=== PATIENT | male | born 1965 | race Caucasian/White ===

== ENCOUNTER 2017-04-20 14:10 | Emergency (ER) | payer OTHER ==
[~2017-04-20] VITALS: Ht 175.3 cm; Wt 63.5 kg
[~2017-04-20 14:10] MED LIST: AMOXICILLIN 50500 M1 PO; ASPIR 8181 MG PO; ASPIRIN EC81 M1; ATIVAN0.5 MG PO; BACTRIM DS TAB1 EACH PO; FOLIC ACID1 MG; IBUPROFEN 800800 MG PO; KEFLEX500 MG PO; LACTULOSE10 GM/15 M PO; LEVAQUIN 500 M500 M2 PO; LEVAQUIN 750 M750 MG PO; LISINOPRIL5 MG PO; LOPRESSOR50 MG PO; NOHOMEMEDICATIONS; NORCO 5-325 TA1 EACH PO; POTASSIUM20 PO; PREDNISONE 5 MG5 M1 PO; TOPROL XL50 MG PO; TRAMADOL 50 MG50 MG PO; ULTRACET TABLE1 EACH PO; UNICOMPLEX M TA1 TA1 PO
[2017-04-20 14:42] LABS: ABSOLUTE BASOPHILS 0.1 thou/uL (0.0-0.2); ABSOLUTE EOSINOPHILS 0.1 thou/uL (0.0-0.7); ABSOLUTE MONOCYTES 0.7 thou/uL (0.0-1.2); ABSOLUTE NEUTROPHILS 3.3 thou/uL (1.6-8.1); BASOPHILS 1.7 %; EOSINOPHILS 2.5 %; HEMATOCRIT 44.3 % (42.0-52.0); HEMOGLOBIN 15.1 gm/dL (14.0-18.0); MCH 33.5 pg (26.0-34.0); MCHC 34.2 g/dL (28.0-37.0); MONOCYTES 13.6 %; NUCLEATED RBCS 0 /100WBC; PLATELET COUNT* 234 thou/uL (150-400); POLYS 63.2 %; RBC 4.52 mil/uL (4.50-6.00); RDW-CV 14.5 % (10.5-14.5); WBC 5.1 thou/uL (4.0-11.0)
[2017-04-20 14:49] LABS: ANION GAP 10 mmol/L (7-16); BUN 11 mg/dL (7-18); CALCIUM 9.1 mg/dL (8.5-10.1); CHLORIDE 92 mmol/L (98-107); CO2 29 mmol/L (21-32); CREATININE 1.2 mg/dL (0.6-1.3); GLUCOSE 144 mg/dL (70-99); POTASSIUM 4.1 mmol/L (3.5-5.1); SODIUM 131 mmol/L (136-145)
[2017-04-20 14:56] LABS: ALBUMIN 3.8 g/dL (3.4-5.0); ALKALINE PHOSPHATASE 84 U/L (46-116); SGOT 34 U/L (15-37); SGPT 25 U/L (30-65); TOTAL BILIRUBIN 0.9 mg/dL (<0.1-1.0); TOTAL PROTEIN 8.3 g/dL (6.4-8.2); TROPONIN-I LEVEL <0.06 ng/mL (<0.06)
[2017-04-20] MEDS ORDERED: DOXYCYCLINE 10100 MG PO (16:18)
[2017-04-20 17:03] VITALS: BP 149/104
--- NOTE | 2017-04-21 15:34 | EKG ---
[place] [address] ELECTROCARDIOGRAM REPORT Name: KRISH BOWMAN Room: 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 : 1965 Requested By: Gino Smith Order Number: [id number] MD: Romain Jenkins Measurements Intervals [place] Rate: 144 P: 70 [place]: 106 QRS: 80 QRSD: 83 T: 41 QT: 293 QTc: 454 Interpretive Statements Sinus tachycardia Tall T, consider metabolic/ischemic abnrm Artifact in lead(s) I,II,III,aVR,aVL,aVF and baseline wander in lead(s) V1 Compared to ECG 05/21/2015 01:47:13 T-wave abnormality now present Sinus rhythm no longer present ST (T wave) deviation no longer present Electronically Signed On 04-21-2017 15:34:17 PERSONAL SERVICE REPRESENTATIVE by Romain Jenkins [email or web address] <ELECTRONICALLY SIGNED> By: Romain Jenkins MD, FACC 04/21/17 1534 1418 1418 Romain Jenkins MD, FAC /EPI
--- NOTE | 2017-04-21 15:36 | EKG ---
[place] [address] ELECTROCARDIOGRAM REPORT Name: KRISH BOWMAN Room: [facility]#: [id number] Admission: 04/20/17 Attend Phys: Discharge: 04/20/17 Date of : 69 Report #: [id number] THIS REPORT FOR: //name// [facility] ED Test Date: 2017-04-20 Test Time: 16:51:47 Pat Name: KRISH BOWMAN Department: Room: Gender: M Temperer: COLLETTE Gomez : 1965 Requested By: Gino Smith Order Number: [id number] MD: Romain Jenkins Measurements Intervals [place] Rate: 91 P: 72 [place]: 143 QRS: 80 QRSD: 94 T: 72 QT: 382 QTc: 471 Interpretive Statements Sinus rhythm Possible left atrial enlargement Probable left ventricular hypertrophy ST elev, probable normal early repol pattern Baseline wander in lead(s) V1,V2 Compared to ECG 05/21/2015 01:47:13 No significant changes Electronically Signed On 04-21-2017 15:36:30 HEAD TENNIS COACH by Romain Jenkins [email or web address] <ELECTRONICALLY SIGNED> By: Romain Jenkins MD, FACC 04/21/17 1536 1651 1651 Romain Jenkins MD, FAC /EPI
== END 2017-04-20 17:08 | disposition home or self-care (01) ==
LOC: M.ERS 14:10
PROVIDERS: Emergency Medicine Emergency Medical Services
DX: R00.2 Palpitations (principal); I10 Essential (primary) hypertension; F17.210 Nicotine dependence, cigarettes, uncomplicated

== ENCOUNTER 2017-06-16 13:14 | Emergency (ER) | payer OTHER ==
[~2017-06-16] VITALS: Ht 175.3 cm; Wt 68.0 kg
[~2017-06-16 13:14] MED LIST changes: +DOXYCYCLINE 10100 MG PO
[2017-06-16 14:20] LABS: ABSOLUTE BASOPHILS 0.1 thou/uL (0.0-0.2); ABSOLUTE EOSINOPHILS 0.3 thou/uL (0.0-0.7); ABSOLUTE MONOCYTES 0.7 thou/uL (0.0-1.2); ABSOLUTE NEUTROPHILS 7.1 thou/uL (1.6-8.1); BASOPHILS 0.8 %; EOSINOPHILS 3.4 %; HEMATOCRIT 42.8 % (42.0-52.0); HEMOGLOBIN 14.2 gm/dL (14.0-18.0); LYMPHOCYTES 10.8 %; MCH 32.7 pg (26.0-34.0); MCHC 33.2 g/dL (28.0-37.0); MCV 98.6 fL (80.0-100.0); MONOCYTES 7.7 %; MPV 6.8 fl. (7.2-11.1); NUCLEATED RBCS 0 /100WBC; PLATELET COUNT* 251 thou/uL (150-400); POLYS 77.3 %; RBC 4.34 mil/uL (4.50-6.00); RDW-CV 14.2 % (10.5-14.5); WBC 9.1 thou/uL (4.0-11.0)
[2017-06-16 14:23] LABS: ANION GAP 9 mmol/L (7-16); BUN 14 mg/dL (7-18); CHLORIDE 98 mmol/L (98-107); CO2 32 mmol/L (21-32); CREATININE 0.9 mg/dL (0.6-1.3); GLUCOSE 206 mg/dL (70-99); POTASSIUM 4.7 mmol/L (3.5-5.1); SODIUM 139 mmol/L (136-145)
[2017-06-16 14:25] LABS: PROTIME 9.7 Seconds (9.20-11.50)
[2017-06-16 14:33] LABS: ALBUMIN 3.7 g/dL (3.4-5.0); ALKALINE PHOSPHATASE 88 U/L (46-116); LIPASE 244 U/L (73-393); NT-PRO BRAIN NAT PEPTIDE 102 pg/mL (<300); SGOT 36 U/L (15-37); SGPT 26 U/L (30-65); TOTAL BILIRUBIN 0.3 mg/dL (<0.1-1.0); TOTAL PROTEIN 8.2 g/dL (6.4-8.2); TROPONIN-I LEVEL <0.06 ng/mL (<0.06)
[2017-06-16 15:50] LABS: URINE BILIRUBIN NEGATIVE (Negative); URINE BLOOD NEGATIVE (Negative); URINE CLARITY CLEAR; URINE COLOR YELLOW; URINE GLUCOSE-RANDOM NEGATIVE (Negative); URINE KETONES NEGATIVE (Negative); URINE LEUKOCYTES-REFLEX NEGATIVE (Negative); URINE NITRITE-REFLEX NEGATIVE (Negative); URINE PROTEIN NEGATIVE (Negative); URINE UROBILINOGEN 0.2 E.U./dl (0.2-1.0)
--- NOTE | 2017-06-16 15:53 | EKG ---
[place] [address] ELECTROCARDIOGRAM REPORT Name: KRISH BOWMAN Room: [facility]#: [id number] Admission: 06/16/17 Attend Phys: Discharge: Date of : 69 Report #: [id number] THIS REPORT FOR: //name// [facility] ED Test Date: 2017-06-16 Test Time: 13:19:49 Pat Name: KRISH BOWMAN Department: Room: Gender: Supervisor Polishing: : 1965 Requested By: Deni Cardoso Order Number: [id number] MD: Daren Arango Measurements Intervals [place] Rate: 100 P: 64 [place]: 142 QRS: 75 QRSD: 89 T: 52 QT: 342 QTc: 442 Interpretive Statements Sinus tachycardia Probable left atrial enlargement Left ventricular hypertrophy Compared to ECG 04/20/2017 16:51:47 Sinus rhythm no longer present ST (T wave) deviation no longer present Electronically Signed On 06-16-2017 15:53:07 CDT by Daren Arango [email or web address] <ELECTRONICALLY SIGNED> By: Daren Arango MD, [facility] 06/16/17 1553 1319 1319 Daren Arango MD, [facility] /EPI
[2017-06-16 15:58] LABS: AMP/METHAMP POSITIVE (Negative); BARBITURATES Negative (Negative); BENZODIAZEPINES Negative (Negative); COCAINE Negative (Negative); METHADONE Negative (Negative); OPIATES Negative (Negative); PCP Negative (Negative); THC POSITIVE (Negative)
[2017-06-16] MEDS ORDERED: AZITHROMYCIN 2250 MG PO (17:05)
[2017-06-16] MEDS ORDERED: MEDROL DOSPAK21 TA1 PO (17:05)
[2017-06-16] MEDS ORDERED: VENTOLIN HFA 1818 GM INH (17:05)
[2017-06-16] MEDS ORDERED: ULTRAM50 MG PO (17:05)
[2017-06-16 17:26] VITALS: BP 166/103
== END 2017-06-16 17:29 | disposition home or self-care (01) ==
LOC: M.ERS 13:14
PROVIDERS: Emergency Medicine
DX: J44.9 Chronic obstructive pulmonary disease, unspecified (principal); I10 Essential (primary) hypertension; J45.909 Unspecified asthma, uncomplicated; F17.210 Nicotine dependence, cigarettes, uncomplicated

== ENCOUNTER 2017-12-07 01:35 | Inpatient (IN) | payer OTHER ==
[~2017-12-07] VITALS: Ht 175.3 cm; Wt 59.9 kg
[~2017-12-07 01:35] MED LIST changes: +AZITHROMYCIN 2250 MG PO; +MEDROL DOSPAK21 TA1 PO; +ULTRAM50 MG PO; +VENTOLIN HFA 1818 GM INH
[2017-12-07 01:40] VITALS: BP 150/76
[2017-12-07 02:01] LABS: ABSOLUTE BASOPHILS 0.1 thou/uL (0.0-0.2); ABSOLUTE EOSINOPHILS 0.1 thou/uL (0.0-0.7); ABSOLUTE MONOCYTES 0.8 thou/uL (0.0-1.2); ABSOLUTE NEUTROPHILS 5.3 thou/uL (1.6-8.1); BASOPHILS 0.7 %; HEMATOCRIT 41.3 % (42.0-52.0); HEMOGLOBIN 13.8 gm/dL (14.0-18.0); LYMPHOCYTES 13.3 %; MCH 32.2 pg (26.0-34.0); MCHC 33.5 g/dL (28.0-37.0); MONOCYTES 11.7 %; MPV 7.5 fl. (7.2-11.1); NUCLEATED RBCS 0 /100WBC; PLATELET COUNT* 174 thou/uL (150-400); POLYS 73.3 %; RDW-CV 15.3 % (10.5-14.5); WBC 7.2 thou/uL (4.0-11.0)
[2017-12-07 02:12] LABS: BUN 22 mg/dL (7-18); CALCIUM 8.7 mg/dL (8.5-10.1); CO2 27 mmol/L (21-32); CREATININE 1.3 mg/dL (0.6-1.3)
[2017-12-07 02:25] LABS: ANION GAP 10 mmol/L (7-16); CHLORIDE 91 mmol/L (98-107); GLUCOSE 97 mg/dL (70-99); POTASSIUM 3.9 mmol/L (3.5-5.1); SODIUM 128 mmol/L (136-145)
[2017-12-07 02:27] LABS: SGOT 72 U/L (15-37)
[2017-12-07 02:28] LABS: ALBUMIN 3.6 g/dL (3.4-5.0); ALKALINE PHOSPHATASE 82 U/L (46-116); SGPT 39 U/L (30-65); TOTAL BILIRUBIN 0.6 mg/dL (<0.1-1.0); TOTAL PROTEIN 7.8 g/dL (6.4-8.2); TROPONIN-I LEVEL <0.06 ng/mL (<0.06)
[2017-12-07 03:50] LABS: URINE BILIRUBIN NEGATIVE (Negative); URINE BLOOD TRACE (Negative); URINE CLARITY CLEAR; URINE COLOR YELLOW; URINE GLUCOSE-RANDOM NEGATIVE (Negative); URINE KETONES NEGATIVE (Negative); URINE LEUKOCYTES-REFLEX NEGATIVE (Negative); URINE NITRITE-REFLEX NEGATIVE (Negative); URINE PROTEIN 1+ (Negative); URINE SPECIFIC GRAVITY 1.025 (1.005-1.030); URINE UROBILINOGEN 0.2 E.U./dl (0.2-1.0)
[2017-12-07 03:57] LABS: AMP/METHAMP POSITIVE (Negative); BARBITURATES Negative (Negative); BENZODIAZEPINES Negative (Negative); COCAINE Negative (Negative); METHADONE Negative (Negative); OPIATES Negative (Negative); PCP Negative (Negative); THC POSITIVE (Negative)
[2017-12-07 04:31] LABS: HCO3 26.5 mmol/L (22.0-26.0); PO2 76.7 mmHg (75.0-100.0); pH 7.429 (7.340-7.450)
[2017-12-07 08:19] VITALS: BP 117/75
[2017-12-07 08:30] VITALS: BP 138/82
[2017-12-07] MEDS ORDERED: VENTOLIN HFA 1818 GM INH (08:59)
--- NOTE | 2017-12-07 11:01 | EKG ---
[place] [address] ELECTROCARDIOGRAM REPORT Name: KRISH BOWMAN Room: [address] ADM IN M.R.#: [id number] Admission: 12/07/17 Attend Phys: Latrice Degroot Discharge: Date of : 69 Report #: [id number] THIS REPORT FOR: //name// [facility] ED Test Date: 2017-12-07 Test Time: 01:43:50 Pat Name: KRISH BOWMAN Department: Room: [facility] Gender: M Drafter Cartographic: : 1965 Requested By: Kim Brunner Order Number: [id number] MD: Srinivas Allen Measurements Intervals [place] Rate: 108 P: 78 [place]: 135 QRS: 80 QRSD: 93 T: 39 QT: 345 QTc: 463 Interpretive Statements Sinus tachycardia Left ventricular hypertrophy ST elev, probable normal early repol pattern Baseline wander in lead(s) I,III,aVR,aVL,V1,V2,V3,V5,V6 Compared to ECG 06/16/2017 13:19:49 no change Electronically Signed On 12-07-2017 11:00:52 CDT by Srinivas Allen [email or web address] <ELECTRONICALLY SIGNED> By: Srinivas Allen MD, FACC 12/07/17 1100 2 0143 Srinivas Allen MD, FACC /EPI
[2017-12-07 11:23] VITALS: BP 129/78
[2017-12-07 16:25] VITALS: BP 129/66
[2017-12-07 20:00] VITALS: BP 157/90
[2017-12-08] VITALS (7 sets, daily range): BP systolic 122–178; BP diastolic 68–93
[2017-12-09 00:42] VITALS: BP 153/87
[2017-12-09 04:17] LABS: CALCIUM 8.2 mg/dL (8.5-10.1); CREATININE 1.2 mg/dL (0.6-1.3); PHOSPHORUS* 2.3 mg/dL (2.5-4.9)
[2017-12-09 04:46] VITALS: BP 149/93
[2017-12-09 08:00] VITALS: BP 172/97
[2017-12-09 11:00] VITALS: BP 153/92
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
[2017-12-09 15:00] VITALS: BP 144/90
[2017-12-09 20:00] VITALS: BP 170/96
[2017-12-10] VITALS: BP 205/111
[2017-12-10 04:00] VITALS: BP 151/83
[2017-12-10 05:21] LABS: ABSOLUTE BASOPHILS 0.1 thou/uL (0.0-0.2); ABSOLUTE LYMPHOCYTES 1.4 thou/uL (0.8-5.3); ABSOLUTE NEUTROPHILS 7.9 thou/uL (1.6-8.1); BASOPHILS 0.9 %; EOSINOPHILS 0.1 %; HEMATOCRIT 39.4 % (42.0-52.0); LYMPHOCYTES 13.3 %; MCH 32.5 pg (26.0-34.0); MCV 98.4 fL (80.0-100.0); MONOCYTES 9.7 %; MPV 7.5 fl. (7.2-11.1); NUCLEATED RBCS 0 /100WBC; PLATELET COUNT* 175 thou/uL (150-400); RBC 4.01 mil/uL (4.50-6.00); RDW-CV 15.2 % (10.5-14.5); WBC 10.5 thou/uL (4.0-11.0)
[2017-12-10 05:30] LABS: CALCIUM 8.4 mg/dL (8.5-10.1); POTASSIUM 4.2 mmol/L (3.5-5.1)
[2017-12-10 08:00] VITALS: BP 153/96
[2017-12-10 12:00] VITALS: BP 165/106
[2017-12-10 16:00] VITALS: BP 148/96
[2017-12-10 20:00] VITALS: BP 144/91
[2017-12-11] VITALS: BP 156/91
[2017-12-11 04:00] VITALS: BP 165/93
[2017-12-11 05:31] LABS: CALCIUM 8.5 mg/dL (8.5-10.1); MAGNESIUM 2.1 mg/dL (1.8-2.4); POTASSIUM 4.4 mmol/L (3.5-5.1)
[2017-12-11 08:00] VITALS: BP 154/96
[2017-12-11 16:31] VITALS: BP 129/83
[2017-12-11 20:00] VITALS: BP 134/82
[2017-12-12 00:32] VITALS: BP 137/84
[2017-12-12 04:39] VITALS: BP 146/90
[2017-12-12 08:05] VITALS: BP 138/95
[2017-12-12] MEDS ORDERED: LOPRESSOR50 MG PO (10:55)
[2017-12-12] MEDS ORDERED: LEVAQUIN 500 M500 M1 PO (10:55)
[2017-12-12] MEDS ORDERED: NEXIUM40 MG PO (10:56)
[2017-12-12] MEDS ORDERED: BENAZEPRIL HCL20 MG PO (10:56)
[2017-12-12] MEDS ORDERED: ADVAIR HFA 230M12 GM INH (10:57)
[2017-12-12] MEDS ORDERED: CENTRUM SILVER1 EAC2 PO (10:59)
[2017-12-12] MEDS ORDERED: PREDNISONE 20 M20 MG PO (10:59)
[2017-12-12 12:05] VITALS: BP 138/95
== END 2017-12-12 13:52 | disposition home or self-care (01) | DRG 918 ==
LOC: M.ERS 01:35 → M.TBA-ER 04:12 → M.2W 04:12
PROVIDERS: Family Medicine; Internal Medicine; Personal Emergency Response Attendant; ADMIT Internal Medicine
DX: T43.621A Poisoning by amphetamines, accidental (unintentional), initial encounter (principal); J44.1 Chronic obstructive pulmonary disease with (acute) exacerbation; E87.1 Hypo-osmolality and hyponatremia; F17.210 Nicotine dependence, cigarettes, uncomplicated; R09.02 Hypoxemia; F10.10 Alcohol abuse, uncomplicated; B19.20 Unspecified viral hepatitis C without hepatic coma; R11.0 Nausea; F15.10 Other stimulant abuse, uncomplicated; I10 Essential (primary) hypertension; Z71.6 Tobacco abuse counseling; Z95.5 Presence of coronary angioplasty implant and graft; Z87.81 Personal history of (healed) traumatic fracture; Z79.82 Long term (current) use of aspirin; Z79.899 Other long term (current) drug therapy; Y92.89 Other specified places as the place of occurrence of the external cause; Z23 Encounter for immunization

== ENCOUNTER 2018-06-16 21:36 | Emergency (ER) | payer OTHER ==
[~2018-06-16] VITALS: Ht 175.3 cm; Wt 72.6 kg
[~2018-06-16 21:36] MED LIST changes: +ADVAIR HFA 230M12 GM INH; +BENAZEPRIL HCL20 MG PO; +CENTRUM SILVER1 EAC2 PO; +LEVAQUIN 500 M500 M1 PO; +NEXIUM40 MG PO; +PREDNISONE 20 M20 MG PO
[2018-06-16 22:00] LABS: ABSOLUTE BASOPHILS 0.1 thou/uL (0.0-0.2); ABSOLUTE EOSINOPHILS 0.2 thou/uL (0.0-0.7); ABSOLUTE LYMPHOCYTES 2.3 thou/uL (0.8-5.3); ABSOLUTE MONOCYTES 0.5 thou/uL (0.0-1.2); ABSOLUTE NEUTROPHILS 4.3 thou/uL (1.6-8.1); BASOPHILS 1.5 %; EOSINOPHILS 2.6 %; HEMATOCRIT 34.5 % (42.0-52.0); HEMOGLOBIN 11.3 gm/dL (14.0-18.0); LYMPHOCYTES 30.7 %; MCH 29.7 pg (26.0-34.0); MCHC 32.8 g/dL (28.0-37.0); MCV 90.4 fL (80.0-100.0); MONOCYTES 6.9 %; MPV 7.3 fl. (7.2-11.1); NUCLEATED RBCS 0 /100WBC; PLATELET COUNT* 217 thou/uL (150-400); POLYS 58.3 %; RBC 3.82 mil/uL (4.50-6.00); RDW-CV 17.9 % (10.5-14.5); WBC 7.4 thou/uL (4.0-11.0)
[2018-06-16 22:03] LABS: URINE BILIRUBIN NEGATIVE (Negative); URINE BLOOD NEGATIVE (Negative); URINE CLARITY CLEAR; URINE COLOR YELLOW; URINE GLUCOSE-RANDOM NEGATIVE (Negative); URINE KETONES NEGATIVE (Negative); URINE LEUKOCYTES-REFLEX NEGATIVE (Negative); URINE NITRITE-REFLEX NEGATIVE (Negative); URINE PROTEIN NEGATIVE (Negative); URINE SPECIFIC GRAVITY 1.015 (1.005-1.030); URINE UROBILINOGEN 0.2 E.U./dl (0.2-1.0)
[2018-06-16 22:04] LABS: ANION GAP 5 mmol/L (7-16); BUN 29 mg/dL (7-18); CALCIUM 8.6 mg/dL (8.5-10.1); CHLORIDE 106 mmol/L (98-107); CO2 33 mmol/L (21-32); CREATININE 1.1 mg/dL (0.6-1.3); GLUCOSE 88 mg/dL (70-99); POTASSIUM 4.5 mmol/L (3.5-5.1); SODIUM 144 mmol/L (136-145)
[2018-06-16 22:12] LABS: PROTIME 10.1 Seconds (9.20-11.50)
[2018-06-16 22:15] LABS: ALBUMIN 3.4 g/dL (3.4-5.0); ALKALINE PHOSPHATASE 70 U/L (46-116); LIPASE 181 U/L (73-393); NT-PRO BRAIN NAT PEPTIDE 239 pg/mL (<300); SGOT 41 U/L (15-37); SGPT 47 U/L (30-65); TOTAL BILIRUBIN 0.2 mg/dL (<0.1-1.0); TOTAL PROTEIN 6.9 g/dL (6.4-8.2); TROPONIN-I LEVEL <0.06 ng/mL (<0.06)
[2018-06-16 22:18] LABS: AMP/METHAMP Negative (Negative); BARBITURATES Negative (Negative); BENZODIAZEPINES POSITIVE (Negative); COCAINE Negative (Negative); METHADONE Negative (Negative); OPIATES Negative (Negative); PCP Negative (Negative); THC POSITIVE (Negative)
[2018-06-16 23:57] VITALS: BP 141/88
--- NOTE | 2018-06-17 13:43 | EKG ---
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 : 1965 Requested By: Lilia Lisa Order Number: [id number] MD: Srinivas Allen Measurements Intervals [place] Rate: 82 P: 37 [place]: 136 QRS: 59 QRSD: 93 T: 30 QT: 399 QTc: 466 Interpretive Statements Sinus rhythm Baseline wander in lead(s) V2 Compared to ECG 12/07/2017 01:43:50 Sinus tachycardia no longer present Left ventricular hypertrophy no longer present Electronically Signed On 06-17-2018 13:42:48 CDT by Srinivas Allen [email or web address] <ELECTRONICALLY SIGNED> By: Srinivas Allen MD, [facility] 06/17/18 1342 214 47 Srinivas Allen MD, [facility] /EPI
== END 2018-06-16 23:57 ==
LOC: M.ERS 21:36
PROVIDERS: Emergency Medicine
DX: F10.129 Alcohol abuse with intoxication, unspecified (principal); R07.89 Other chest pain; F17.210 Nicotine dependence, cigarettes, uncomplicated; J45.909 Unspecified asthma, uncomplicated; I10 Essential (primary) hypertension; Z95.5 Presence of coronary angioplasty implant and graft; Y90.0 Blood alcohol level of less than 20 mg/100 ml